=== PATIENT | male | born 1950 | race Caucasian/White ===

== ENCOUNTER 2019-10-11 10:33 | Outpatient (CLI) | payer MEDICARE ==
--- NOTE | 2019-10-11 10:44 | RAD ---
Exam:3 views left HISTORY: Pain and swelling COMPARISON: None FINDINGS: There is flexion of the first metacarpal phalangeal. No erosive or destructive changes. Paula nt spaces appear to be preserved. No fracture. IMPRESSION: Persistent flexion of the first digit. There is concern for ligamentous injury, consider MRI.
== END 2019-10-11 10:34 | disposition home or self-care (01) ==
LOC: RAD-FRANK 10:33
PROVIDERS: ATTEND Nurse Practitioner Family
DX: M19.042 Primary osteoarthritis, left hand (principal)